=== PATIENT | female | born 1980 | race Hispanic/Latino ===

== ENCOUNTER 2016-05-06 10:38 | Outpatient (CLI) | payer OTHER ==
--- NOTE | 2016-05-07 07:38 | RAD ---
2 VIEWS OF ABDOMEN WITH UPRIGHT VIEW OF CHEST: Date: 05/06/16 COMPARISON: None. HISTORY: Epigastric abdominal pain. FINDINGS: Supine and upright views of the abdomen and upright view of the chest show a nonspecific, nonobstruc tive bowel gas pattern. No free air or air fluid levels are seen on upright examination. An IUD is s een in the pelvis. The cardiomediastinal silhouette is normal in size. There is no evidence of consolidation, mass, or pleural effusion. IMPRESSION: No evidence of obstruction. POS: [facility]
== END 2016-05-06 10:39 | disposition home or self-care (01) ==
LOC: MADLAB 10:38
PROVIDERS: ATTEND Nurse Practitioner Family
DX: R10.13 Epigastric pain (principal)
CPT/HCPCS: 74022